=== PATIENT | male | born 1965 | race Caucasian/White ===

== ENCOUNTER → 2016-11-15 | Outpatient (CLI) | payer OTHER ==
[~2016-11-15] MED LIST: ALBUTEROL0.83 MG/ML IH; ALBUTEROL17 G1 IH; ALBUTEROL17 GM INH; BACTRIM DS TABL1 TA1; BACTRIM DS TABL1 TA1 PO; BACTRIM DS TABL1 TAB PO; BENZONATATE PO; CLARINEX-D1 TAB.SR . PO; CLINDAMYCIN HC300 MG PO; CORTISPORIN-TC10 ML AS; DIFLUCAN; EXCEDRIN MIGRAI1 TA2 PO; FLEXERIL10 M1 PO; GLIPIZIDE10 MG PO; GLUCOPHAGE500 MG PO; HIBICLENS 4% L120 ML TOP; IBUPROFEN800 MG PO; JANUMET 50-1,1 UDTAB PO; KEFLEX500 MG PO; LEVAQUIN PO; PERCOCET 7.5-31 EACH PO; PREDNISONE50 MG PO; PYRIDIUM PO; TETRACYCLINE PO; TRAMADOL HCL50 M2 PO; VICODIN 5/500 T1 TAB PO
--- NOTE | ~2016-11-15 | MR104 ---
[facility] A Service of [facility] RADIOLOGY TEXT RESULTS PATIENT: MARILYN WELLER LOCATION: [facility] : 65 UNIT #: [id number] AGE: [address]: Dimitri Jeffries MD SEX: M ORDER DR: [id number] [place] [id number] MR#: [id number] Acc #: [id number] NAME: MARILYN WELLER : 1965 SEX: M STUDY DATE/TIME: 11/15/2016 13:49 UNIT: [facility] ROOM: STUDY DESCRIPTION: MR Knee Wo Contrast Rt Attending Physician: Dimitri Jeffries M.D. Referring Physician: Dimitri Jeffries M.D. Ordering Physician: Dimitri Jeffries M.D. Primary Care Physician: Mirian Kearns M.D. MRI CENTER REPORT This report is preliminary unless electronic signature is present. EXAM Right knee MRI without contrast, 11/15/2016. HISTORY 51-year-old male with worsening right knee pain over the last 9 months. No prior right knee surgery COMPARISON Right knee MRI 01/21/2012. Bilateral knee x-rays 03/03/2016. TECHNIQUE Routine, unenhanced, multiplanar, multisequence, high-field MR imaging of the right knee was performed. FINDINGS There has been interval progression of the intrameniscal signal abnormality in the posterior horn of the medial meniscus to involve the inferior articular surface, consistent with a longitudinal horizontal oblique undersurface tear. There has also been interval development of a horizontal oblique superior surface tear at the junction of the anterior horn/body segment of the lateral meniscus. Cruciate and collateral ligaments are intact. Extensor mechanism is intact. No significant joint effusion. There is a very tiny popliteal cyst. There is a large loose body located posterior to the PCL measuring 2.6 x 1.9 cm in size. There are smaller loose bodies located slightly superior to the larger loose body, which measure 11 and 10 mm, respectively. There is full-thickness articular cartilage loss involving the medial and lateral patellar facets with mild subchondral marrow edema with mild associated subchondral marrow edema. There is multifocal moderate to STS[facility] A Service of [facility] RADIOLOGY TEXT RESULTS PATIENT: MARILYN WELLER LOCATION: [facility] : 65 UNIT #: [id number] AGE: [address]: Dimitri Jeffries MD SEX: M ORDER DR: high-grade chondromalacia throughout the femoral trochlea without subchondral marrow edema. There is high-grade articular cartilage loss involving the central and posterior weightbearing surfaces of the lateral femoral condyle and lateral tibial plateau. Reactive subchondral marrow edema in the lateral femoral condyle and lateral tibial plateau. Medial compartment articular cartilage remains intact. Bone marrow signal is otherwise within expected limits. Visualized musculature is unremarkable. IMPRESSION 1. Interval progression of previously noted intrameniscal signal abnormality in the posterior horn and posterior body segment of the medial meniscus, which now contacts the inferior articular surface, consistent with a longitudinal horizontal oblique undersurface tear. 2. Interval development of a longitudinal horizontal oblique superior surface tear at the junction of the anterior horn/body segment lateral meniscus. 3. No acute ligament injury. 4. Large loose body located posterior to the PCL measuring 2.6 x 1.9 cm. Two smaller loose bodies slightly superior to the larger loose body measuring 11 and 10 mm, respectively. 5. Advanced patellofemoral arthrosis, detailed above. 6. High-grade full-thickness articular cartilage loss central and posterior weightbearing lateral femoral condyle and lateral tibial plateau with mild subchondral marrow edema. Dictated by... Landon Quintero M.D. THIS IS AN ELECTRONICALLY VERIFIED REPORT Landon Quintero M.D. at 11/17/2016 10:39 AM TUCKER/camryn TD: 11/16/2016 17:53 JOB #: [id number] MRI CENTER REPORT Page 1 of 1
== END | disposition home or self-care (01) ==
LOC: SMRI 13:00
DX: M17.11 Unilateral primary osteoarthritis, right knee (principal); M23.241 Derangement of anterior horn of lateral meniscus due to old tear or injury, right knee; M23.41 Loose body in knee, right knee
CPT/HCPCS: 73721

== ENCOUNTER → 2016-12-01 | Outpatient (CLI) | payer OTHER ==
[2016-12-01 14:06] LABS: BASOPHIL# 0.1 X10e3 (0-0.3); BASOPHIL% 0.6 % (0-2.5); EOSINOPHIL# 0.2 X10e3 (0-0.7); EOSINOPHIL% 1.9 % (0.0-7.0); HEMATOCRIT 51.9 % (38.0-50.0); HEMOGLOBIN 17.8 gm/dL (13.0-16.0); LYMPHOCYTE# 1.8 X10e3 (1.0-3.5); LYMPHOCYTE% 15.1 % (17.0-45.0); MEAN CELL VOLUME 92.9 FL (83-96); MEAN CORPUSCULAR HEMOGLOBIN 31.9 PG (28-34); MEAN CORPUSCULAR HGB CONC 34.3 g/dL (30-36); MEAN PLATELET VOLUME 7.4 FL (6.5-11.5); MONOCYTE# 0.8 X10e3 (0-1.0); MONOCYTE% 7.2 % (3.0-12.0); NEUTROPHIL# 8.8 X10e3 (1.5-7.1); NEUTROPHIL% 75.2 % (40-75); PLATELET COUNT 263 X10e3 (140-420); RED BLOOD COUNT 5.58 X10e (3.90-5.60); RED CELL DISTRIBUTION WIDTH 13.2 % (11.0-15.5); WHITE BLOOD COUNT 11.7 X10e3 (4.0-10.5)
[2016-12-01 14:10] LABS: DIFF IND NO
[2016-12-01 14:13] LABS: ALBUMIN SERUM 4.1 g/dL (3.5-5.0); BILIRUBIN,TOTAL 1.2 mg/dL (0.2-2.0); BUN/CREATININE RATIO 16.25; CALCIUM SERUM 9.1 mg/dL (8.4-10.2); CREATININE SERUM 0.8 mg/dL (0.6-1.4); GLOM FILT RATE Estimated 103.5 mL/min (>60); PROTEIN TOTAL SERUM 7.4 g/dL (6.0-8.3)
== END | disposition home or self-care (01) ==
LOC: SLAB 13:05
PROVIDERS: Nurse Practitioner Family
DX: L40.0 Psoriasis vulgaris (principal)
CPT/HCPCS: 36415; 80053; 85025

== ENCOUNTER → 2016-12-01 | Outpatient (CLI) | payer OTHER ==
[2016-12-01 14:14] LABS: BILIRUBIN,TOTAL 1.1 mg/dL (0.2-2.0); BUN/CREATININE RATIO 16.25; CALCIUM SERUM 9.1 mg/dL (8.4-10.2); CREATININE SERUM 0.8 mg/dL (0.6-1.4); GLOM FILT RATE Estimated 103.5 mL/min (>60); POTASSIUM 4.1 mmol/L (3.5-5.1); PROTEIN TOTAL SERUM 7.5 g/dL (6.0-8.3)
[2016-12-01 15:05] LABS: THYROID STIMULATING HORMONE 1.46 uIU/ml (0.34-5.60)
[2016-12-01 15:35] LABS: FOLLICLE STIMULATING HORMONE 4.11 mIU/mL (1.27-19.26)
[2016-12-01 15:36] LABS: LEUTINIZING HORMONE 5.34 mIU/mL (1.24-8.62)
[2016-12-02 23:45] LABS: PSA, FREE 0.12 ng/mL (())
== END | disposition home or self-care (01) ==
LOC: SLAB 13:03
PROVIDERS: Urology
DX: E29.1 Testicular hypofunction (principal)
CPT/HCPCS: 36415; 80053; 83001; 83002; 84146; 84153; 84154; 84443

== ENCOUNTER → 2016-12-10 | Outpatient (CLI) | payer OTHER ==
[2016-12-14 10:50] LABS: TESTOSTERONE FREE (PNL) 66.4 pg/mL (35.0-155.0)
== END | disposition home or self-care (01) ==
LOC: SLAB 09:14
PROVIDERS: Urology
DX: E29.1 Testicular hypofunction (principal)
CPT/HCPCS: 36415; 84402; 84403